=== PATIENT | male | born 1950 | race Caucasian/White ===

== ENCOUNTER 2019-04-23 13:27 | Outpatient (RCR) | payer BC ==
[~2019-04-23] VITALS: Ht 175.3 cm; Wt 92.8 kg
[~2019-04-23 13:27] MED LIST: ASPI325T6 PO; CEPHALEXIN500 M1 PO; DUO-KAPS1 CAP PO; EPA/GLA1 SGL PO; LEVOXYL0.175 MG PO; PROSTATE SUPPOR PO; SYNTHROID0.125 MG/T PO
[2019-04-23] MEDS ORDERED: TYLENOL 500MG500 MG PO (13:53)
[2019-04-23] MEDS ORDERED: FERRO-TIME325 MG PO (13:54)
[2019-04-23] MEDS ORDERED: SYSTANE 0.4%-0.1 SOL OP (13:54)
[2019-04-23] MEDS ORDERED: VITAMIN C500 MG PO (13:55)
[2019-04-23] MEDS ORDERED: VANCOMYCIN 11 G/VIA1 IV (13:56)
[2019-04-23] MEDS ORDERED: ULTRAM 50MG TAB50 MG PO (13:56)
[2019-04-23 13:57] VITALS: BP 136/95; PULSE 115; TEMP 98.3
--- NOTE | 2019-04-23 15:40 | NUR ---
Pt ride here to pick pt up.Pt discharged via wheelchair.
== END 2019-04-23 15:41 | disposition home or self-care (01) ==
LOC: EUO 13:27
DX: S61.219A Laceration without foreign body of unspecified finger without damage to nail, initial encounter (principal); M89.8X8 Other specified disorders of bone, other site; I70.8 Atherosclerosis of other arteries; I89.8 Other specified noninfective disorders of lymphatic vessels and lymph nodes
CPT/HCPCS: C1751; C1892

== ENCOUNTER → 2020-09-16 | Outpatient (CLI) | payer BC ==
[~2020-09-16] MED LIST changes: +FERRO-TIME325 MG PO; +SYSTANE 0.4%-0.1 SOL OP; +TYLENOL 500MG500 MG PO; +ULTRAM 50MG TAB50 MG PO; +VANCOMYCIN 11 G/VIA1 IV; +VITAMIN C500 MG PO
== END ==
LOC: COL.RAD 14:55
DX: T85.79XA Infection and inflammatory reaction due to other internal prosthetic devices, implants and grafts, initial encounter (principal)